=== PATIENT | male | born 1985 | race Caucasian/White ===

== ENCOUNTER 2016-06-21 08:25 | Emergency (ER) | payer MEDICAID ==
[2016-06-21 08:33] VITALS: BP 126/86; PULSE 87; RESP 16; TEMP 98.2; O2SAT 96
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
== END 2016-06-21 08:54 | disposition home or self-care (01) ==
DX: S02.31XA Fracture of orbital floor, right side, initial encounter for closed fracture (principal); F17.200 Nicotine dependence, unspecified, uncomplicated; Z04.71 Encounter for examination and observation following alleged adult physical abuse; X58.XXXA Exposure to other specified factors, initial encounter

== ENCOUNTER 2016-06-25 14:35 | Emergency (ER) | payer MEDICAID ==
[2016-06-25 15:27] LABS: % IMMATURE GRANULYOCYTES 0.5 % (0.0-1.1); ABSOLUTE IMMATURE GRANULOCYTES 0.05 10^3/uL (0.00-0.10); ADD DIFF? NO; ADD MORPH? NO; ADD SCAN? NO; ATYPICAL LYMPHOCYTE FLAG 20 (0-99); FRAGMENT RBC FLAG 0 (0-99); LEFT SHIFT FLG 0 (0-99); LIPEMIA HEMOLYSIS FLAG 90 (0-99); MEAN CELL HEMOGLOBIN 30.6 pg (27.9-34.1); MEAN CELL VOLUME 89.9 fL (81.5-99.8); MEAN PLATELET VOLUME 9.7 fL (8.7-11.7); PLATELET CLUMPS FLAG 0 (0-99); PLATELET COUNT 292 10^3/uL (150-400); RED BLOOD CELL COUNT 5.23 10^6/uL (4.40-6.38); RED CELL DISTRIBUTION WIDTH 12.7 % (11.5-15.2)
[2016-06-25 15:53] LABS: ANION GAP 9 mEq/L (8-16); CALCIUM 9.6 mg/dL (8.5-10.4); CARBON DIOXIDE 23 mEq/l (22-31); CHLORIDE 105 mEq/L (97-110); CREATININE 1.1 mg/dL (0.7-1.3); ETHANOL SERUM < 10 mg/dL (0-10); GLOMERULAR FILTRATION RATE > 60; GLUCOSE 89 mg/dL (70-100); POTASSIUM 4.5 mEq/L (3.5-5.2); SALICYLATE < 1.0 mg/dL (2.0-20.0); SODIUM 137 mEq/L (134-144)
[2016-06-25 17:37] VITALS: TEMP 97.5
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
[2016-06-26 00:49] VITALS: BP 111/72; PULSE 55; RESP 16; O2SAT 95
== END 2016-06-26 00:55 ==
DX: R45.851 Suicidal ideations (principal); F43.10 Post-traumatic stress disorder, unspecified; Z87.891 Personal history of nicotine dependence
CPT/HCPCS: 80305; G0480

== ENCOUNTER 2018-08-09 18:25 | Emergency (ER) | payer MEDICAID ==
[2018-08-09] MEDS ORDERED: ONDANSETRON DISINTEGRATING 4 MG TAB PO ONE (18:30)
[2018-08-09] MEDS ORDERED: ACETAMINOPHEN 500 MG TAB PO ONE (18:30)
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
[2018-08-09 19:51] VITALS: BP 111/72
== END 2018-08-09 19:55 | disposition home or self-care (01) ==
LOC: EDUNIT#
DX: R69 Illness, unspecified (principal); F31.9 Bipolar disorder, unspecified; Z59.0 Homelessness

== ENCOUNTER 2018-09-13 18:45 | Emergency (ER) | payer MEDICAID | END 2018-09-13 20:35 | disposition home or self-care (01) ==